=== PATIENT | female | born 1980 | race Caucasian/White ===

== ENCOUNTER 2025-02-23 16:28 | Emergency (ER) | payer OTHER, SELFPAY ==
[2025-02-23 16:35] VITALS: BP 134/68; PULSE 89; RESP 16; TEMP 36.4; O2SAT 100; BMI 26.6
--- NOTE | 2025-02-23 16:35 | XRR_ITS ---
PROCEDURE INFORMATION: Exam: XR Right Wrist Exam date and time: 02/23/2025 4:39 PM Age: 44 years old Clinical indication: Injury or trauma; Fall; Blunt trauma (contusions or hematomas); Wrist; Right; Additional info: Pain, fall, bruising TECHNIQUE: Imaging protocol: Radiologic exam of the right wrist. Views: 3 or more views. COMPARISON: CR XR hand RT min 3V* [id number] 02/23/2025 4:39 PM FINDINGS: Bones/joints: No acute osseous abnormality. Soft tissues: Normal. XR/XR wrist RT min 3V* [id number] IMPRESSION: No acute findings.
--- NOTE | 2025-02-23 16:35 | XRR_ITS ---
PROCEDURE INFORMATION: Exam: XR Right Hand Exam date and time: 02/23/2025 4:39 PM Age: 44 years old Clinical indication: Pain and injury or trauma; Fall; Blunt trauma (contusions or hematomas); Hand; Right; Additional info: Pain, swelling, bruising around ulnar hand TECHNIQUE: Imaging protocol: Radiologic exam of the right hand. Views: 3 or more views. COMPARISON: CR XR wrist RT min 3V* [id number] 02/23/2025 4:39 PM FINDINGS: Bones/joints: No acute osseous abnormality. Soft tissues: Normal. XR/XR hand RT min 3V* [id number] IMPRESSION: No acute findings.
--- NOTE | 2025-02-23 16:40 | ED_ITS ---
HPI - Extremity Problem General: Chief complaint: Extremity Injury, Upper Stated complaint: right wrist injury Time Seen by Provider: 02/23/25 16:31 Source: patient Mode of arrival: ambulatory Limitations: no limitations History of Present Illness: Patient is a 44-year-old female presents emergency department after injuring her right upper extremity just prior to arrival. States that her dog pulled her upstairs and she struck the side of the post and then the ground with the ulnar aspect of her right hand. She notes pain that is extending from the distal right ulnar wrist into the right fifth pinky. She reports a history of elbow dislocation on that same arm but denies any elbow pain or decreased range of motion in the elbow at this time. She does however have decreased range of motion at the wrist as well as in the fifth finger, and she has limited range of motion with pronation and supination. There is bruising and swelling reported and pain is moderate and easily reproducible to palpation. Vitals are stable otherwise. She is right-hand dominant. MD Complaint: extremity pain and joint pain Onset (ago): minute(s) Pain Consistency: constant Location: right and upper extremity Associated symptoms: Deny chest pain, fever(s) or rash Related Data Allergies Allergy/AdvReac Type Severity Reaction Status Date / Time No Known Allergies Allergy Verified 02/23/25 16:37 Review of Systems General: Reports: 10 or more systems reviewed and unremarkable except in HPI and below Const: Denies: fever(s) or chills Card: Denies: chest pain Resp: Denies: dyspnea or productive cough GI: Denies: abdominal pain, nausea, vomiting or diarrhea : Denies: flank pain Musc: Reports: extremity pain, extremity swelling, joint pain, joint swelling and limited range of motion; Denies: neck pain, back pain, joint redness, joint warmth or muscle weakness Skin/Breast: Denies: rash Neuro: Denies: headache(s), numbness in extremities or weakness in extremities Physical Exam Const: COMMON NORMALS: no acute distress, patient oriented x3, no limitations, healthy appearing, alert and well nourished HENMT: COMMON NORMALS: normocephalic and atraumatic HEAD & SCALP: normocephalic and atraumatic Neck/C-Spine: COMMON NORMALS: full ROM, supple and no meningeal signs Extremity: NARRATIVE EXTREMITY EXAM: There is tender to palpation to ulnar aspect of distal right wrist with mild swelling and bruising. There is an associated abrasion to the ulnar aspect of the right wrist. Pain extends along the base of the fifth metacarpal into the pinky where there is also associated bruising and swelling. Limited range of motion of the fifth finger secondary to pain but cap refill is normal and sensations intact. There is limitation of range of motion with supination and pronation secondary to pain. Mild tender to palpation along the distal right radius as well. The elbow examination is normal. Neuro: COMMON NORMALS: patient oriented x3, moves all extremities, no focal motor deficits and no sensory deficits noted SENSORIUM/ORIENTATION: Yes alert MENINGEAL SIGNS: Yes no meningeal signs Skin: COMMON NORMALS: no rashes or lesions noted GENERAL SKIN EXAM: no rashes or lesions noted Course Vital Signs: Vital signs: Vital Signs Temperature 97.6 F 02/23/25 16:35 Pulse Rate 89 02/23/25 16:35 Respiratory Rate 16 02/23/25 16:35 Blood Pressure 134/68 02/23/25 16:35 Pulse Oximetry 100 02/23/25 16:35 Oxygen Delivery Me thod Room Air 02/23/25 16:35 MDM - Extremity (Nontraumatic) Medical Decision Making This patient presented after injuring her right wrist while walking upstairs, dog had pulled her forward and she presents with moderate pain. Previous history of dislocation to the elbow on that right side but no elbow symptoms at this time. Neurovascular exam overall intact there was quite a bit of pain and swelling as noted in the exam but overall the x-rays reveal no acute fracture this is likely a mix of a sprain of the right wrist as well as multiple contusion sites. This will be symptomatically treated at home there is no further workup necessary in the ED, instructed her to elevate the extremity, ice, and alternate Motrin and Tylenol for any breakthrough pain. Lab Data Radiology Impressions Hand X-Ray 02/23/25 16:35 IMPRESSION: No acute findings. Wrist X-Ray 02/23/25 16:35 IMPRESSION: No acute findings. All radiology interpretation(s) finalized by discharge Discharge Plan Discharge Patient Disposition: Home Clinical Impression: Right wrist sprain Qualifiers: Encounter type: initial encounter Wrist sprain location: unspecified location Qualified Code(s): S63.501A - Unspecified sprain of right wrist, initial encounter Contusion of multiple sites of right hand and wrist Qualifiers: Encounter type: initial encounter Qualified Code(s): S60.221A - Contusion of right hand, initial encounter Condition: Stable Discharge Orders: Discharge ED (Routine); Ordered 02/23/25 Ordered By: Gui Smith Patient Instructions: Patient Portal & Delfina Instructions Activity Restrictions/Additional Instructions: Discharge Instructions Your Diagnosis You have been diagnosed with a right wrist sprain and multiple contusions (bruises) of the right hand and wrist. Your X-rays showed no broken bones. Most people with wrist sprains recover well with proper care at home. What to Do at Home Rest Your Hand and Wrist - Limit use of your injured right hand and wrist for the next 1-2 weeks. - Avoid activities that cause pain or make your symptoms worse. - You may need to take time off work or modify your duties if your job requires use of your right hand. Apply Ice - Apply ice to reduce pain and swelling. - Use a bag filled with ice and water, wrapped in a damp cloth. Do not place ice directly on your skin to prevent cold injury. - Apply ice for 20-30 minutes at a time, 3-4 times daily for the first few days. - You may also use refreezable gel packs if ice is not available. Use a Compression Wrap - You may wrap your wrist with an elastic bandage for comfort and pain relief. - Make sure the wrap is snug but not too tight. If your fingers become numb, tingly, or change color, loosen the wrap immediately. Elevate Your Hand - Keep your hand elevated above the level of your heart when possible to reduce swelling. - Prop your hand on pillows when sitting or lying down. Pain Management - You may take [id number] pain medication such as ibuprofen or acetaminophen as directed on the package. - Follow the dosing instructions carefully and do not exceed the recommended dose. What to Expect - Most people with wrist sprains feel better within 2 weeks and return to normal activities within 6 weeks. - Some mild discomfort may continue for several weeks as you heal. - The majority of patients with wrist sprains have excellent long-term recovery. When to Follow Up - Schedule a follow-up appointment with your primary care doctor in 1-2 weeks to check your progress. - If your symptoms have not improved after 6 weeks of home treatment, you may need to see a hand specialist. Warning Signs - Return to the Emergency Department or Call Your Doctor If: - Your pain gets significantly worse instead of better - You develop numbness or tingling in your fingers that does not go away - Your fingers become cold, blue, or pale - You notice increased swelling, redness, or warmth in your hand or wrist - You develop a fever - You are unable to move your fingers or wrist - You have concerns about your recovery Activity Restrictions - Avoid heavy lifting, gripping, or twisting motions with your right hand for at least 1-2 weeks. - Gradually return to normal activities as your pain improves. - Listen to your body - if an activity causes pain, stop and rest. Questions? If you have any questions or concerns about your injury or recovery, please contact your doctor's office. Print Language: Slovak Coding Level of Care Code ED Activities Volunteer for Jolene Burnett
[2025-02-23] MEDS: HYDROcodone-acetaminophen 5-325 mg Tablet 1 TAB PO (17:14)
[2025-02-23 18:20] VITALS: BP 149/89; PULSE 81; O2SAT 98
== END 2025-02-23 18:21 | disposition home or self-care (01) ==
PROVIDERS: Emergency Provider Physician Assistant
DX: S63.501A Unspecified sprain of right wrist, initial encounter (principal); S60.221A Contusion of right hand, initial encounter; W22.8XXA Striking against or struck by other objects, initial encounter
CPT/HCPCS: 73110; 73130; 99283; J9999